=== PATIENT | female | born 1965 | race African-American/Black ===

== ENCOUNTER 2019-06-21 15:32 | Emergency (ER) | payer BC ==
--- NOTE | 2019-06-21 15:42 | PDOC ---
Rapid Medical Evaluation Time Seen by Provider: 06/21/19 15:41 Medical Evaluation: 06/21/19 15:41 I have performed a brief in-person evaluation of this patient. The patient presents with a chief complaint of: abdominal cramping s/p colonoscopy Pertinent physical exam findings:stable and in NAD, non-focal I have ordered the following:labs The patient will proceed to the ED for further evaluation.
[2019-06-21 15:43] VITALS: BMI 34.5
[2019-06-21 17:01] LABS: BILIRUBIN,TOTAL 0.6 mg/dL (0.2-1); BLOOD UREA NITROGEN 10.4 mg/dL (7-18); CALCIUM 9.3 mg/dL (8.5-10.1); CREATININE 1.2 mg/dL (0.55-1.3); POTASSIUM 3.5 mmol/L (3.5-5.1); TOT PROT 7.7 g/dl (6.4-8.2)
--- NOTE | 2019-06-21 17:13 | PDOC ---
History of Present Illness - General Chief Complaint: Pain Stated Complaint: SHORTNESS OF BREATH Time Seen by Provider: 06/21/19 15:41 History Source: Patient Exam Limitations: No Limitations - History of Present Illness Initial Comments: 06/21/19 17:09 Patient is a 53 year old female with no significant PMH who presents with diffuse abd pain s/p colonoscopy this am. Pt had her second colonoscopy this morning, about 1 hour afterwards she ate food from a food truck and began experiencing diffuse, severe abd cramping. She states the pain was "as severe as giving ". She also endorses nausea and 1 episode of non-bloody loose stool. No vomiting, fevers, chills. Pt had no GI symptoms prior to today. Of note, pt had LEEP procedure 1 week ago and has since been experiencing vaginal bleeding (2-3 pads per day). She has an appointment with her Trouble Operator tomorrow. Past History - Past Medical History Allergies/Adverse Reactions: Allergies Allergy/AdvReac Type Severity Reaction Status Date / Time No Known Allergies Allergy Verified 06/21/19 15:43 COPD: No - Psycho Social/Smoking Cessation Hx Smoking History: Never smoked Review of Systems - Review of Systems Able to Perform ROS?: Yes Constitutional: No: Chills, Diaphoresis, Fever, Loss of Appetite HEENTM: No: Symptoms Reported, See HPI, Eye Pain, Blurred Vision, Tearing, Recent change in vision, Double Vision, Cataracts, Ear Pain, Ocular Prothesis, Ear Discharge, Nose Pain, Nose Congestion, Tinnitus, Nose Bleeding, Hearing Loss , Throat Pain, Throat Swelling, Mouth Pain, Dental Problems, Difficulty Swallowing, Mouth Swelling, Other Respiratory: Yes: Shortness of Breath. No: Symptoms reported, See HPI, Cough, Orthopnea, SOB with Exertion, SOB at Rest, Stridor, Wheezing, Productive cough, Hemoptysis, Other Cardiac (ROS): No: Symptoms Reported, See HPI, Chest Pain, Edema, Irregular Heart Rate, Lightheadedness, Palpitations, Syncope, Chest Tightness, Other ABD/GI: Yes: Diarrhea, Nausea, Abdominal cramping. No: Symptoms Reported, See HPI, Abdominal Distended, Abd. Pain w/ defecation, Blood Streaked Bowels, Constipated, Difficulty Swallowing, Poor Appetite, Poor Fluid Intake, Rectal Bleeding, Vomiting, Indigestion, Tarry Stools, Other : No: Symptoms Reported, See HPI, Burning, Dysuria, Discharge, Frequency, Flank Pain, Hematuria, Incontinence, Pain, Urgency, Testicular Mass, Testicular Swelling, Lesions, Testicular Pain, Other Neurological: No: Symptoms reported, See HPI, Headache, Numbness, Paresthesia, Pre-Existing Deficit, Seizure, Tingling, Tremors, Weakness, Unsteady Gait, Ataxia, Dizziness, Other Psychiatric: No: Anxiety, Depression, Frequent Crying, Stressors, Sleep Pattern Change, Emotional Problems, Mood Swings, Change in Appetite, Other *Physical Exam - Vital Signs Last Vital Signs Temp Pulse Resp BP Pulse Ox 98.1 F 94 H 18 147/81 98 06/21/19 15:38 06/21/19 15:38 06/21/19 15:38 06/21/19 15:38 06/21/19 15:38 - Physical Exam General Appearance: Yes: Nourished, Appropriately Dressed HEENT: positive: EOMI, [place], Normal ENT Inspection, Normal Voice, Symmetrical Neck: positive: Trachea midline, Normal Thyroid Respiratory/Chest: positive: Lungs Clear, Normal Breath Sounds. negative: Respiratory Distress, Accessory Muscle Use, Wheezing Cardiovascular: positive: Regular Rhythm, Regular Rate, S1, S2, Edema. negative : JVD, Murmur Vascular Pulses: Dorsalis-Pedis (R): 2+, Doralis-Pedis (L): 2+ Gastrointestinal/Abdominal: positive: Normal Bowel Sounds, Tender Extremity: positive: Normal Capillary Refill, Normal Inspection, Normal Range of Motion ED Treatment Course - LABORATORY CBC & Chemistry Diagram: 06/21/19 16:11 06/21/19 16:11 - ADDITIONAL ORDERS Additional order review: Laboratory Results 06/21/19 16:11 Sodium 139 Potassium 3.5 Chloride 105 Carbon Dioxide 28 Anion Gap 7 L BUN 10.4 Creatinine 1.2 Est GFR (CKD-EPI)AfAm 60.60 Est GFR (CKD-EPI)NonAf 52.28 Random Glucose 97 Calcium 9.3 Total Bilirubin 0.6 AST 22 ALT 20 Alkaline Phosphatase 100 Total Protein 7.7 Albumin 4.0 06/21/19 16:11 RBC Cancelled MCV Cancelled MCHC Cancelled RDW Cancelled MPV Cancelled Neutrophils % Cancelled Lymphocytes % Cancelled Monocytes % Cancelled Eosinophils % Cancelled Basophils % Cancelled Medical Decision Making - Medical Decision Making 06/21/19 17:16 - Labs, CTAP w/contrast 06/21/19 17:44
[2019-06-21 17:53] LABS: BASO % 0.9 % (0-2.0); EOS % 1.1 % (0-4.5); HEMOGLOBIN 14.7 GM/dL (10.7-15.3); LYMPH % 27.5 % (8-40); MCH 29.1 pg (25.7-33.7); MCHC 32.7 g/dl (32.0-36.0); MEAN CELL VOLUME 88.9 fl (80-96); MEAN PLT VOLUME 9.1 fl (7.5-11.1); MONO % 5.7 % (3.8-10.2); NEUT % 64.8 % (42.8-82.8); PLATELET COUNT 251 K/MM3 (134-434); RBC 5.06 M/mm3 (3.60-5.2); RDW 14.4 % (11.6-15.6); WHITE BLOOD COUNT 9.2 K/mm3 (4.0-10.0)
--- NOTE | 2019-06-21 18:01 | PDOC ---
Documentation entered by Scottie Freedman SCRIBE, acting as scribe for Nathan Morris MD. Nathan Morris MD: This documentation has been prepared by the Tano melchor Daniel, SCRIBE, under my direction and personally reviewed by me in its entirety. I confirm that the documentation accurately reflects all work, treatment, procedures, and medical decision making performed by me. Attending Attestation - Resident Resident Name: Carmen Rivas - ED Attending Attestation I have performed the following: I have examined & evaluated the patient, The case was reviewed & discussed with the resident, I agree w/resident's findings & plan, Exceptions are as noted - HPI HPI: 06/21/19 18:01 53 F with no PMH presenting to ED with abdominal pain. Pt notes that she had a colonoscopy this morning. After the procedure, she ate food and began to experience diffuse abdominal cramping. She describes it as severe pain similar to childbirth, but his has gradually subsided. She reports nausea without vomiting. Also endorses one episode of loose stool. Denies F/C. - Physicial Exam PE: 06/21/19 18:02 "GENERAL: Awake, alert, and fully oriented, in no acute distress. HEAD: No signs of trauma EYES: PERRLA, EOMI, sclera anicteric, conjunctiva clear ENT: Auricles normal inspection, hearing grossly normal, nares patent, oropharynx clear without exudates. Moist mucosa NECK: Nontender, no stepoffs, Normal ROM, supple, no lymphadenopathy, JVD, or masses LUNGS: Breath sounds equal, clear to auscultation bilaterally. No wheezes, and no crackles HEART: Regular rate and rhythm, normal S1 and S2, no murmurs, rubs or gallops ABDOMEN: + mild diffuse TTP most pronounced in epigastric region EXTREMITIES: Normal range of motion, no edema. No clubbing or cyanosis. No cords, erythema, or tenderness NEUROLOGICAL: Cranial nerves II through XII intact. 5/5 strength and sensation in all extremities, Normal speech, normal gait, normal cerebellar function SKIN: Warm, Dry, normal turgor, no rashes or lesions noted. - Medical Decision Making 06/21/19 18:03 53 F with diffuse abdominal pain after colonoscopy today. Will need to r/o perf. - Labs - CTAP - IVF, pain control 06/21/19 21:[address] head obtained showing incidental pituitary enlargement. Pt informed of results and instructed to f/u with PMD for further eval. Copy of CT report given to pt. CTAP unremarkable. Pt reassessed - abdominal pain improved. Pt tolerating PO without N/V. Pt is well appearing, with normal vitals. Clinically stable for DC at this time. I discussed the physical exam findings, ancillary test results and final diagnoses with the patient. I answered all of the patient's questions. The patient was satisfied with the care received and felt comfortable with the discharge plan and treatment plan. The patient agrees to follow up with the primary care physician within 24-72 hours.
--- NOTE | 2019-06-21 19:00 | PDOC ---
*Physical Exam - Vital Signs Last Vital Signs Temp Pulse Resp BP Pulse Ox 98.2 F 84 20 132/88 97 06/21/19 18:50 06/21/19 18:50 06/21/19 18:50 06/21/19 18:50 06/21/19 18:50 ED Treatment Course - LABORATORY CBC & Chemistry Diagram: 06/21/19 17:27 06/21/19 16:11 - ADDITIONAL ORDERS Additional order review: Laboratory Results 06/21/19 16:11 Sodium 139 Potassium 3.5 Chloride 105 Carbon Dioxide 28 Anion Gap 7 L BUN 10.4 Creatinine 1.2 Est GFR (CKD-EPI)AfAm 60.60 Est GFR (CKD-EPI)NonAf 52.28 Random Glucose 97 Calcium 9.3 Total Bilirubin 0.6 AST 22 ALT 20 Alkaline Phosphatase 100 Total Protein 7.7 Albumin 4.0 06/21/19 06/21/19 17:27 16:11 RBC 5.06 Cancelled MCV 88.9 Cancelled MCHC 32.7 Cancelled RDW 14.4 Cancelled MPV 9.1 Cancelled Neutrophils % 64.8 Cancelled Lymphocytes % 27.5 Cancelled Monocytes % 5.7 Cancelled Eosinophils % 1.1 Cancelled Basophils % 0.9 Cancelled - RADIOLOGY Radiology Studies Ordered: Category Date Time Status ABDOMEN & PELVIS CT WITH CONTR [CT] Stat CT Scan 06/21/19 17:32 Ordered Medical Decision Making - Medical Decision Making 06/21/19 18:58 received sign out from day team 53F no pmh presenting with abdominal cramping and one episode loose stool after eating from food truck. Had colonscopy today - f/u CT - likely dispo home Last Vital Signs Temp Pulse Resp BP Pulse Ox 98.2 F 84 20 132/88 97 06/21/19 18:50 06/21/19 18:50 06/21/19 18:50 06/21/19 18:50 06/21/19 18:50
--- NOTE | 2019-06-21 19:03 | PDOC ---
*Physical Exam - Vital Signs Last Vital Signs Temp Pulse Resp BP Pulse Ox 98.2 F 84 20 132/88 97 06/21/19 18:50 06/21/19 18:50 06/21/19 18:50 06/21/19 18:50 06/21/19 18:50 <Darrell Munguia - Last Filed: 06/21/19 21:10> - Vital Signs Last Vital Signs Temp Pulse Resp BP Pulse Ox 96.7 F L 73 18 110/69 96 06/21/19 20:17 06/21/19 20:17 06/21/19 20:17 06/21/19 20:17 06/21/19 20:17 <Nahtan Morris - Last Filed: 06/21/19 21:41> ED Treatment Course - LABORATORY CBC & Chemistry Diagram: 06/21/19 17:27 06/21/19 16:11 - ADDITIONAL ORDERS Additional order review: Laboratory Results 06/21/19 16:11 Sodium 139 Potassium 3.5 Chloride 105 Carbon Dioxide 28 Anion Gap 7 L BUN 10.4 Creatinine 1.2 Est GFR (CKD-EPI)AfAm 60.60 Est GFR (CKD-EPI)NonAf 52.28 Random Glucose 97 Calcium 9.3 Total Bilirubin 0.6 AST 22 ALT 20 Alkaline Phosphatase 100 Total Protein 7.7 Albumin 4.0 06/21/19 06/21/19 17:27 16:11 RBC 5.06 Cancelled MCV 88.9 Cancelled MCHC 32.7 Cancelled RDW 14.4 Cancelled MPV 9.1 Cancelled Neutrophils % 64.8 Cancelled Lymphocytes % 27.5 Cancelled Monocytes % 5.7 Cancelled Eosinophils % 1.1 Cancelled Basophils % 0.9 Cancelled <Darrell Munguia - Last Filed: 06/21/19 21:10> - LABORATORY CBC & Chemistry Diagram: 06/21/19 17:27 06/21/19 16:11 - ADDITIONAL ORDERS Additional order review: Laboratory Results 06/21/19 06/21/19 16:11 16:11 Sodium 139 Potassium 3.5 Chloride 105 Carbon Dioxide 28 Anion Gap 7 L BUN 10.4 Creatinine 1.2 Est GFR (CKD-EPI)AfAm 60.60 Est GFR (CKD-EPI)NonAf 52.28 Random Glucose 97 Calcium 9.3 Total Bilirubin 0.6 AST 22 ALT 20 Alkaline Phosphatase 100 Total Protein 7.7 Albumin 4.0 Serum , Qual Negative 06/21/19 06/21/19 17:27 16:11 RBC 5.06 Cancelled MCV 88.9 Cancelled MCHC 32.7 Cancelled RDW 14.4 Cancelled MPV 9.1 Cancelled Neutrophils % 64.8 Cancelled Lymphocytes % 27.5 Cancelled Monocytes % 5.7 Cancelled Eosinophils % 1.1 Cancelled Basophils % 0.9 Cancelled - Medications Given in the ED: ED Medications Discontinued Medications Generic Name Dose Route Start Last Admin Trade Name Shira PRN Reason Stop Dose Admin Famotidine/Sodium Chloride 20 mg in 50 mls @ 100 mls/hr 06/21/19 19:43 20:16 Pepcid 20 Mg Premixed Ivpb - IVPB 06/21/19 20:12 100 mls/hr ONCE ONE Administration Sodium Chloride 1,000 ml 06/21/19 19:43 06/21/19 20:16 Normal Saline - IV 06/21/19 19:44 1,000 ml ONCE ONE Administration <OuNathan - Last Filed: 06/21/19 21:41> Medical Decision Making - Medical Decision Making 06/21/19 19:03 received sign out from day team 53F no PMH, abd cramping and loose stool x1 after eating from food truck had colonscopy today; r/o perf labs reassuring - f/u CT - likely dispo home 06/21/19 19:44 spoke w/ pt who brought up she fell a few weeks ago and states she may have lost consciousness. Pt provides unreliable history often avoiding directly answering questions. pt states no numbness, tingling, or weakness. No changes in vision or hearing. - CT head - fluids - abd pain ctrl 06/21/19 19:57 HEENT: NC/AT, CN II-XII intact, EOMI, PERRLA. No facial asymmetry. Normal voice. Supple neck w/ FROM, no midline TTP of c-spine. NEURO: FROM UE and LE b/l. 5/5 bicep/tricep/social service assistant strength b/l. 5/5 UE strength b /l. 5/5 LE strength b/l. Sensation symmetric and intact throughout. BACK: No obvious deformities, no step offs, no midline TTP. No signs of trauma. 06/21/19 20:11 serum preg neg 06/21/19 21:11 CT A/P IMPRESSION: No evidence of pneumoperitoneum. There is mild increased fluid within the colon - ? due to recently performed colonoscopy , bowel preparation for recent colonoscopy or possible current diarrheal illness. Note is also made of mild diffuse colonic distention which may be due to air insufflation if colonoscopy was recently performed versus possible mild ileus. Probable diffuse hepatic steatosis. CT HEAD IMPRESSION: No CT evidence of acute intracranial pathology. The sella turcica demonstrates prominent expansion with hypodensity centrally possibly representing an intrasellar cyst, partially cystic pituitary adenoma, or previously treated pituitary adenoma. There is possible superior displacement of the pituitary gland which abuts the optic chiasm. MRI evaluation (without and with contrast) is suggested, nonemergent unless otherwise clinically indicated. No acute pathology DC home w/ PCP f/u <Darrell Munguia - Last Filed: 06/21/19 21:10> Discharge - Discharge Information Problems reviewed: Yes - Admission No <Darrell Munguia - Last Filed: 06/21/19 21:10> <Nathan Morris - Last Filed: 06/21/19 21:41> - Discharge Information Clinical Impression/Diagnosis: Abdominal pain Qualifiers: Abdominal location: lower abdomen, unspecified Qualified Code(s): R10.30 - Lower abdominal pain, unspecified Condition: Stable Disposition: HOME - Patient Discharge Instructions Patient Printed Discharge Instructions: DI for Abdominal Pain-Adult Additional Instructions: You were evaluated in the Emergency Department. Follow up with your Primary Care Doctor regarding this ED visit in the next 3-[address] scan of your head showed an abnormality that needs further evaluation. You were provided a copy of your CT reports, bring the reports to your primary care doctor. Immediately return to the nearest Emergency Department if you experience any of the following: - Worsening pain or if you pain does not improve in the next 72 hours - Inability to eat or drink; severe vomiting - Chest pain, shortness of breath - ANYTHING that concerns you
[2019-06-21] MEDS ORDERED: SODIUM CHLORIDE 0.9% 500 ML INFUS.BAG IV ONE (19:43)
[2019-06-21] MEDS ORDERED: FAMOTIDINE 20 MG/50 ML IVPB 20 MG/50 ML MG IVPB ONE ×2 (19:43→20:02)
[2019-06-21 20:20] VITALS: BP 110/69; PULSE 73; TEMP 96.7
== END 2019-06-21 21:58 | disposition home or self-care (01) ==
LOC: JER 15:32
PROC: 3E033GC Introduction of Other Therapeutic Substance into Peripheral Vein, Percutaneous Approach (ICD-10-PCS; principal; 2019-06-21)
DX: R10.9 Unspecified abdominal pain (principal); Z98.890 Other specified postprocedural states; S09.8XXA Other specified injuries of head, initial encounter; Z91.81 History of falling
CPT/HCPCS: 36415; 70450-TC; 74177-TC; 80053; 84703; 85025; 99283-25

== ENCOUNTER 2021-01-24 23:29 | Emergency (ER) | payer BC ==
[2021-01-24 23:44] VITALS: BP 127/80; PULSE 81; TEMP 98; BMI 35.7
[2021-01-25] MEDS ORDERED: ACETAMINOPHEN 325 MG TABLET (FP) PO ONE (02:01)
[2021-01-25] MEDS ORDERED: METOCLOPRAMIDE HCL 10 MG TABLET (FP) PO ONE ×2 (02:01→02:15)
[2021-01-25] MEDS ORDERED: ACETAMINOPHEN 325 MG TABLET (FP) ONE (02:15)
== END 2021-01-25 05:37 | disposition home or self-care (01) ==
LOC: JER 23:29
DX: R51.9 Headache, unspecified (principal)
CPT/HCPCS: 70450-TC; 99284-25